=== PATIENT | female | born 1935 | race Caucasian/White ===

== ENCOUNTER 2018-06-29 12:14 | Emergency (ER) | payer MEDICARE ==
[~2018-06-29] VITALS: Ht 165.1 cm; Wt 70.2 kg
[2018-06-29 13:39] LABS: BASOPHILS # (AUTO) 0.03 x10^3/uL (0-0.1); BASOPHILS % (AUTO) 0 % (0-1); EOSINOPHILS # (AUTO) 0.34 x10^3/uL (0-0.4); EOSINOPHILS % (AUTO) 5 % (1-7); LYMPHOCYTES # (AUTO) 0.92 x10^3/uL (1-3.4); LYMPHOCYTES % (AUTO) 12 % (22-44); MD NO; MEAN CORPUSCULAR HEMOGLOBIN 29.2 pg (27.0-34.8); MEAN CORPUSCULAR HGB CONC 33.5 g/dL (32.4-35.8); MEAN CORPUSCULAR VOLUME 87.1 fL (80-100); MEAN PLATELET VOLUME 8.6 fL (7.4-10.4); MONOCYTES # (AUTO) 0.93 x10^3/uL (0.2-0.8); MONOCYTES % (AUTO) 12 % (2-9); NEUTROPHILS # (AUTO) 5.32 x10^3/uL (1.8-6.8); NEUTROPHILS % (AUTO) 71 % (42-75); PLATELET COUNT 161 x10^3/uL (130-400); RED BLOOD COUNT 3.91 x10^6/uL (3.82-5.3)
[2018-06-29 14:12] VITALS: BP 135/78
== END 2018-06-29 14:17 | disposition home or self-care (01) ==
LOC: ED 14:11
DX: S40.022A Contusion of left upper arm, initial encounter (principal); I10 Essential (primary) hypertension; Z95.0 Presence of cardiac pacemaker; X58.XXXA Exposure to other specified factors, initial encounter; Y93.89 Activity, other specified; Y92.89 Other specified places as the place of occurrence of the external cause; Y99.8 Other external cause status
CPT/HCPCS: 36415; 85025; 93005; 99284

== ENCOUNTER 2021-03-20 12:13 | Emergency (ER) | payer MEDICARE ==
[~2021-03-20] VITALS: Ht 165.1 cm; Wt 74.2 kg
[2021-03-20 12:42] LABS: BASOPHILS % (AUTO) 1 % (0-1); EOSINOPHILS % (AUTO) 4 % (1-7); LYMPHOCYTES % (AUTO) 7 % (22-44); MEAN CORPUSCULAR HEMOGLOBIN 26.6 pg (27.0-34.8); MEAN PLATELET VOLUME 7.9 fL (7.4-10.4); MONOCYTES % (AUTO) 12 % (2-9); NEUTROPHILS % (AUTO) 76 % (42-75); PLATELET COUNT 264 x10^3/uL (130-400); RED BLOOD COUNT 4.84 x10^6/uL (3.82-5.3); RED CELL DISTRIBUTION WIDTH 16.2 % (9.6-15.2)
[2021-03-20 12:57] LABS: ALANINE AMINOTRANSFERASE 12 U/L (12-78); ALBUMIN 3.6 g/dL (3.4-5.0); ANION GAP 9 mmol/L (5-15); CALCIUM 9.4 mg/dL (8.5-10.1); CHLORIDE 105 mmol/L (98-107); CREATININE 1.54 mg/dL (0.55-1.02)
[2021-03-20 13:00] LABS: INTERNATIONAL NORMALIZED RATIO 1.03 (0.93-1.1)
[2021-03-20 13:01] LABS: ALKALINE PHOSPHATASE 69 U/L (45-117); BILIRUBIN,TOTAL 0.5 mg/dL (0.2-1.0); TOTAL PROTEIN 7.9 g/dL (6.4-8.2); TROPONIN I < 0.015 ng/mL (0.000-0.045)
[2021-03-20] MEDS ORDERED: LEVO75TA5 PO (14:13)
[2021-03-20] MEDS ORDERED: VIT1CAPS11 PO (14:22)
[2021-03-20] MEDS ORDERED: ASPI-963 PO (14:22)
[2021-03-20] MEDS ORDERED: CARV6.252 PO (14:22)
[2021-03-20] MEDS ORDERED: SENN-190 PO (14:22)
[2021-03-20] MEDS ORDERED: BUME1TAB21 PO (14:22)
[2021-03-20] MEDS ORDERED: TOLT1TAB13 PO (14:22)
[2021-03-20] MEDS ORDERED: ISOS20TA58 PO (14:22)
[2021-03-20] MEDS ORDERED: APIX2.5T PO (14:22)
[2021-03-20] MEDS ORDERED: CHOL500045 PO (14:22)
[2021-03-20] MEDS ORDERED: OMEP-110 PO (14:22)
[2021-03-20] MEDS ORDERED: LOSA25TA25 PO (14:22)
[2021-03-20 14:30] LABS: MICROSCOPIC AUTO
[2021-03-20] MEDS ORDERED: ACET-1600 PO (14:59)
[2021-03-20] MEDS ORDERED: DIPH25CA61 PO (14:59)
[2021-03-20] MEDS ORDERED: LORA-445 PO (14:59)
[2021-03-20] MEDS ORDERED: PROP10TA16 PO (14:59)
[2021-03-20] MEDS ORDERED: MECLIZINE CHEWABLE 25 MG TAB ONE (15:16)
[2021-03-20] MEDS ORDERED: MECLIZINE CHEWABLE 25 MG TAB PO ONE (15:30)
--- NOTE | 2021-03-20 16:25 | NUR ---
PT ABLE TO AMBULATE STEADILY IN HALLWAY FOR OVER 100ft. PT DENIED ANY DIZZINESS WHILE UP AMBULATING. PT BACK IN BED AWAITING CT SCAN
--- NOTE | 2021-03-20 17:21 | NUR ---
PT UP FOR RECHECK, CT RESULTS BACK.
[2021-03-20 18:16] VITALS: BP 151/69
== END 2021-03-20 18:17 | disposition home or self-care (01) ==
LOC: ED 13:57
DX: R42 Dizziness and giddiness (principal); R53.1 Weakness; I10 Essential (primary) hypertension; R51.9 Headache, unspecified
CPT/HCPCS: 36415; 70450; 71045; 80053; 81001; 83735; 83880; 84443; 84484; 85025; 85610; 85730; 87086; 93005; 99285

== ENCOUNTER 2021-03-24 07:00 | Inpatient (IN) | payer MEDICARE ==
[~2021-03-24] VITALS: Ht 165.1 cm; Wt 77.9 kg
[~2021-03-24 07:00] MED LIST: ACET-1600 PO; APIX2.5T PO; ASPI-963 PO; BUME1TAB21 PO; CARV6.252 PO; CHOL500045 PO; DIPH25CA61 PO; ISOS20TA58 PO; LEVO75TA5 PO; LORA-445 PO; LOSA25TA25 PO; OMEP-110 PO; PROP10TA16 PO; SENN-190 PO; TOLT1TAB13 PO; VIT1CAPS11 PO
[2021-03-24] MEDS ORDERED: INSU100I13 SC (07:44)
[2021-03-24 08:50] LABS: BASOPHILS % (AUTO) 1 % (0-1); EOSINOPHILS % (AUTO) 3 % (1-7); LYMPHOCYTES % (AUTO) 6 % (22-44); MEAN CORPUSCULAR HEMOGLOBIN 26.4 pg (27.0-34.8); MEAN CORPUSCULAR HGB CONC 32.5 g/dL (32.4-35.8); MEAN PLATELET VOLUME 7.9 fL (7.4-10.4); MONOCYTES % (AUTO) 14 % (2-9); NEUTROPHILS % (AUTO) 76 % (42-75); PLATELET COUNT 204 x10^3/uL (130-400); RED BLOOD COUNT 4.52 x10^6/uL (3.82-5.3); RED CELL DISTRIBUTION WIDTH 16.7 % (9.6-15.2)
[2021-03-24] MEDS ORDERED: DIAZEPAM 5 MG/ML, 2ML IV ONE (09:00)
[2021-03-24 09:05] LABS: ANION GAP 9 mmol/L (5-15); CHLORIDE 106 mmol/L (98-107)
[2021-03-24 09:09] LABS: CREATININE 1.45 mg/dL (0.55-1.02); TROPONIN I < 0.015 ng/mL (0.000-0.045)
[2021-03-24] MEDS ORDERED: DIAZEPAM 5 MG/ML, 2ML ONE (09:12)
--- NOTE | 2021-03-24 11:19 | NUR ---
MRI called again to verify about [employer] rep. state they are on their way to retrieve pt., resting quietly
[2021-03-24] MEDS ORDERED: ONDANSETRON 2MG/ML, 2ML IVPush PRN (14:00)
[2021-03-24] MEDS ORDERED: SODIUM CHLORIDE 0.9% 1,000 ML IV SCH (14:00)
[2021-03-24] MEDS ORDERED: ONDANSETRON ODT 4 MG PO PRN (14:00)
[2021-03-24] MEDS ORDERED: OMNIPAQUE 350 MG/ML, 75ML BOTTLE ONE (14:50)
--- NOTE | 2021-03-24 15:21 | NUR ---
BEDSIDE REPORT AND TRANSFER OF CARE FROM IBETH PLATA AT THIS TIME. PT EATING MEAL TRAY AT THIS TIME WITHOUT ANY DIFFICULTY. DENIES ANY PAIN AND NEED TO USE RESTROOM. VSS. CALL LIGHT IN REACH. FALL PRECAUTIONS IN PLACE. A&OX4. AWAITING ROOM ASSIGNMENT ON FLOOR. ALL NEEDS MET AND ADDRESSED.
--- NOTE | 2021-03-24 16:35 | NUR ---
PT ASSISTED TO BSC. ASSISTED BACK TO BED. RESTING COMFORTABLY. VSS. DENIES PAIN, CP, DIZZINESS. WATCHING TV. AWAITING ROOM ON FLOOR. CALL LIGHT IN REACH. FALL PRECAUTIONS IN PLACE
--- NOTE | 2021-03-24 17:02 | NUR ---
MEDICATIONS REQUESTED FROM PHARMACY, YELLOW SLIP SENT
--- NOTE | 2021-03-24 17:35 | NUR ---
CONTINUE AWAITING MEDICATIONS FROM PHARMACY. RESTING COMFORTABLY. DENIES ANY PAIN AND NEED TO USE RESTROOM. DAUGHTER AT BEDSIDE. VSS. CALL LIGHT IN REACH. FALL PRECAUTIONS IN PLACE
[2021-03-24] MEDS: INSULIN LISPRO 100 UNITS/ML, PEN SQ-INSULIN SCH ×2 (18:09→21:48)
[2021-03-24] MEDS: LACTOBACILLUS CHEW TABLET PO SCH ×2 (18:15→21:57)
[2021-03-24] MEDS: PROPRANOLOL 10 MG TABLET PO SCH ×2 (18:15→21:00)
--- NOTE | 2021-03-24 18:15 | NUR ---
PT RESTING COMFORTABLY. DENIES NEED TO USE RESTROOM. MEDICATED NOTED IN EMAR. FSBS CHECKED,124, NO INSULIN INDICATED PER SLIDING SCALE. VSS. CALL LIGHT IN REACH. WILL CONTINUE TO MONITOR. AWAITING ROOM ON FLOOR.
--- NOTE | 2021-03-24 19:15 | NUR ---
BEDSIDE REPORT AND TRANSFER OF CARE TO IRAJ RN AT THIS TIME.
--- NOTE | 2021-03-24 20:40 | NUR ---
REPORT TO CRYSTAL PLATA
[2021-03-24] MEDS: TOLTERODINE 2MG TABLET PO SCH (21:00)
[2021-03-24] MEDS: CARVEDILOL 6.25 MG TABLET PO SCH (21:00)
[2021-03-24] MEDS ORDERED: DIPHENHYDRAMINE 12.5MG/5ML, 10ML UDC PO SCH (21:00)
[2021-03-24] MEDS ORDERED: LORazepam 0.5MG TABLET PO PRN (21:00)
[2021-03-24 21:18] VITALS: BP 148/77
[2021-03-24] MEDS: INSULIN GLARGINE 100 UNITS/ML, PEN SQ-INSULIN SCH (21:48)
[2021-03-24] MEDS: ISOSORBIDE DINITRATE 20 MG TABLET PO SCH (21:57)
[2021-03-24] MEDS: APIXABAN 5 MG TABLET PO SCH (21:57)
[2021-03-24] MEDS: ATORVASTATIN 80 MG TABLET PO SCH (21:57)
[2021-03-25 00:51] VITALS: BP 148/68
[2021-03-25] MEDS ORDERED: PROPRANOLOL 10 MG TABLET PO PRN (01:00)
[2021-03-25] MEDS ORDERED: DIPHENHYDRAMINE 12.5MG/5ML, 10ML UDC PO PRN (01:00)
[2021-03-25] MEDS: LEVOTHYROXINE 75 MCG TABLET PO SCH (05:49)
[2021-03-25 06:41] LABS: ANION GAP 7 mmol/L (5-15); BASOPHILS % (AUTO) 1 % (0-1); CHLORIDE 105 mmol/L (98-107); EOSINOPHILS % (AUTO) 5 % (1-7); LYMPHOCYTES % (AUTO) 7 % (22-44); MEAN CORPUSCULAR HEMOGLOBIN 26.2 pg (27.0-34.8); MEAN CORPUSCULAR HGB CONC 32.2 g/dL (32.4-35.8); MONOCYTES % (AUTO) 13 % (2-9); NEUTROPHILS % (AUTO) 75 % (42-75); PLATELET COUNT 209 x10^3/uL (130-400); RED BLOOD COUNT 4.61 x10^6/uL (3.82-5.3); RED CELL DISTRIBUTION WIDTH 16.6 % (9.6-15.2)
[2021-03-25 06:42] LABS: CREATININE 1.34 mg/dL (0.55-1.02)
[2021-03-25] MEDS: INSULIN LISPRO 100 UNITS/ML, PEN SQ-INSULIN SCH ×4 (07:30→20:14)
[2021-03-25] MEDS ORDERED: LOSARTAN 25MG TABLET PO SCH (09:00)
[2021-03-25] MEDS ORDERED: BUMETANIDE 1 MG TABLET PO SCH (09:00)
[2021-03-25 09:13] VITALS: BP 172/70
[2021-03-25] MEDS: TOLTERODINE 2MG TABLET PO SCH ×2 (09:19→20:10)
[2021-03-25] MEDS: MULTIVITAMINS/MINERALS TABLET PO SCH (09:19)
[2021-03-25] MEDS: OMEPRAZOLE 20 MG CAPSULE.DR PO SCH (09:20)
[2021-03-25] MEDS: ISOSORBIDE DINITRATE 20 MG TABLET PO SCH ×2 (09:20→20:09)
[2021-03-25] MEDS: CARVEDILOL 6.25 MG TABLET PO SCH ×2 (09:21→20:09)
[2021-03-25] MEDS: ASPIRIN 81 MG TABLET EC PO SCH (09:22)
[2021-03-25] MEDS: SENNOSIDES 8.6 MG TABLET PO SCH (09:22)
[2021-03-25] MEDS: APIXABAN 5 MG TABLET PO SCH ×2 (09:23→20:09)
[2021-03-25 12:50] VITALS: BP 151/65
[2021-03-25] MEDS ORDERED: POTASSIUM CHLORIDE 20 MEQ TAB.ER.PRT PO ONE (15:00)
[2021-03-25 16:37] VITALS: BP 150/72
[2021-03-25 19:49] VITALS: BP 148/70
[2021-03-25] MEDS: ATORVASTATIN 80 MG TABLET PO SCH (20:09)
[2021-03-25] MEDS: INSULIN GLARGINE 100 UNITS/ML, PEN SQ-INSULIN SCH (20:13)
[2021-03-25 23:26] VITALS: BP 159/83
[2021-03-26 04:11] VITALS: BP 157/72
[2021-03-26] MEDS: LEVOTHYROXINE 75 MCG TABLET PO SCH (05:11)
[2021-03-26] MEDS ORDERED: GLUCAGON 1 MG IM PRN (06:30)
[2021-03-26] MEDS ORDERED: DEXTROSE 50%, 50ML SYRINGE IVPush PRN (06:30)
[2021-03-26] MEDS ORDERED: DEXTROSE 4 GM TAB.CHEW PO PRN (06:30)
[2021-03-26] MEDS: INSULIN LISPRO 100 UNITS/ML, PEN SQ-INSULIN SCH ×4 (07:00→19:43)
[2021-03-26 07:26] VITALS: BP 148/61
[2021-03-26] MEDS: ACETAMINOPHEN 500 MG TABLET PO PRN (07:52)
[2021-03-26] MEDS: TOLTERODINE 2MG TABLET PO SCH ×2 (08:13→19:59)
[2021-03-26] MEDS: SENNOSIDES 8.6 MG TABLET PO SCH (08:14)
[2021-03-26] MEDS: APIXABAN 5 MG TABLET PO SCH ×2 (08:16→19:58)
[2021-03-26] MEDS: ISOSORBIDE DINITRATE 20 MG TABLET PO SCH ×2 (08:16→19:58)
[2021-03-26] MEDS: OMEPRAZOLE 20 MG CAPSULE.DR PO SCH (08:16)
[2021-03-26] MEDS: MULTIVITAMINS/MINERALS TABLET PO SCH (08:16)
[2021-03-26] MEDS: CARVEDILOL 6.25 MG TABLET PO SCH ×2 (08:16→19:57)
[2021-03-26] MEDS: LOSARTAN 25MG TABLET PO SCH (08:16)
[2021-03-26] MEDS: ASPIRIN 81 MG TABLET EC PO SCH (08:16)
[2021-03-26] MEDS: SODIUM CHLORIDE FLUSH 10ML SYR IVF SCH ×2 (09:00→19:57)
[2021-03-26 12:22] VITALS: BP 133/83
[2021-03-26 14:55] VITALS: BP 147/78
[2021-03-26 19:50] VITALS: BP 154/63
[2021-03-26] MEDS: ATORVASTATIN 80 MG TABLET PO SCH (19:57)
[2021-03-26] MEDS: INSULIN GLARGINE 100 UNITS/ML, PEN SQ-INSULIN SCH (19:58)
[2021-03-26 23:50] VITALS: BP 167/67
[2021-03-27 03:52] VITALS: BP 160/51
[2021-03-27] MEDS: LEVOTHYROXINE 75 MCG TABLET PO SCH (05:29)
[2021-03-27] MEDS: INSULIN LISPRO 100 UNITS/ML, PEN SQ-INSULIN SCH ×4 (07:00→20:19)
[2021-03-27 08:00] VITALS: BP 154/78
[2021-03-27] MEDS: SENNOSIDES 8.6 MG TABLET PO SCH (10:31)
[2021-03-27] MEDS: LOSARTAN 25MG TABLET PO SCH (10:32)
[2021-03-27] MEDS: ISOSORBIDE DINITRATE 20 MG TABLET PO SCH ×2 (10:33→20:29)
[2021-03-27] MEDS: MULTIVITAMINS/MINERALS TABLET PO SCH (10:33)
[2021-03-27] MEDS: ASPIRIN 81 MG TABLET EC PO SCH (10:33)
[2021-03-27] MEDS: OMEPRAZOLE 20 MG CAPSULE.DR PO SCH (10:33)
[2021-03-27] MEDS: APIXABAN 5 MG TABLET PO SCH ×2 (10:33→20:29)
[2021-03-27] MEDS: SODIUM CHLORIDE FLUSH 10ML SYR IVF SCH ×2 (10:34→20:30)
[2021-03-27] MEDS: TOLTERODINE 2MG TABLET PO SCH ×2 (10:34→20:33)
[2021-03-27] MEDS: CARVEDILOL 6.25 MG TABLET PO SCH ×2 (10:34→20:31)
[2021-03-27 11:08] LABS: ANION GAP 7 mmol/L (5-15); CALCIUM 8.7 mg/dL (8.5-10.1); CHLORIDE 106 mmol/L (98-107); CREATININE 1.28 mg/dL (0.55-1.02)
[2021-03-27 14:00] VITALS: BP 150/68
[2021-03-27] MEDS: ACETAMINOPHEN 500 MG TABLET PO PRN (14:55)
[2021-03-27 19:11] VITALS: BP 132/67
[2021-03-27] MEDS: ATORVASTATIN 80 MG TABLET PO SCH (20:29)
[2021-03-27] MEDS: INSULIN GLARGINE 100 UNITS/ML, PEN SQ-INSULIN SCH (20:30)
[2021-03-28 00:14] VITALS: BP 146/71
[2021-03-28 01:12] VITALS: BP 138/69
[2021-03-28 04:24] VITALS: BP 168/75
[2021-03-28] MEDS: LEVOTHYROXINE 75 MCG TABLET PO SCH (06:05)
[2021-03-28] MEDS: INSULIN LISPRO 100 UNITS/ML, PEN SQ-INSULIN SCH ×2 (07:00→11:21)
[2021-03-28 07:10] VITALS: BP 151/73
[2021-03-28 07:50] LABS: BASOPHILS % (AUTO) 1 % (0-1); EOSINOPHILS % (AUTO) 5 % (1-7); LYMPHOCYTES % (AUTO) 5 % (22-44); MEAN CORPUSCULAR HEMOGLOBIN 26.4 pg (27.0-34.8); MEAN CORPUSCULAR HGB CONC 32.6 g/dL (32.4-35.8); MEAN PLATELET VOLUME 8.6 fL (7.4-10.4); MONOCYTES % (AUTO) 13 % (2-9); NEUTROPHILS % (AUTO) 77 % (42-75); PLATELET COUNT 190 x10^3/uL (130-400); RED BLOOD COUNT 4.34 x10^6/uL (3.82-5.3); RED CELL DISTRIBUTION WIDTH 16.7 % (9.6-15.2)
[2021-03-28 07:51] LABS: CHLORIDE 106 mmol/L (98-107)
[2021-03-28 07:59] LABS: ANION GAP 7 mmol/L (5-15); CALCIUM 8.7 mg/dL (8.5-10.1)
[2021-03-28] MEDS: MULTIVITAMINS/MINERALS TABLET PO SCH (11:15)
[2021-03-28] MEDS: ASPIRIN 81 MG TABLET EC PO SCH (11:15)
[2021-03-28] MEDS: TOLTERODINE 2MG TABLET PO SCH (11:15)
[2021-03-28] MEDS: ISOSORBIDE DINITRATE 20 MG TABLET PO SCH (11:15)
[2021-03-28] MEDS: APIXABAN 5 MG TABLET PO SCH (11:15)
[2021-03-28] MEDS: OMEPRAZOLE 20 MG CAPSULE.DR PO SCH (11:15)
[2021-03-28] MEDS: LOSARTAN 25MG TABLET PO SCH (11:15)
[2021-03-28] MEDS: SODIUM CHLORIDE FLUSH 10ML SYR IVF SCH (11:16)
[2021-03-28] MEDS: SENNOSIDES 8.6 MG TABLET PO SCH (11:17)
[2021-03-28 14:00] VITALS: BP 162/74
[2021-03-28] MEDS ORDERED: LOSA25TA25 PO (14:59)
[2021-03-28] MEDS ORDERED: CARV6.2512 PO (14:59)
[2021-03-28] MEDS ORDERED: TRAM50TA2 PO (14:59)
[2021-03-28] MEDS ORDERED: HYDR-3341 PO (14:59)
[2021-03-28] MEDS ORDERED: APIX5TAB PO (14:59)
[2021-03-28] MEDS ORDERED: ATOR-2 PO (14:59)
[2021-03-28] MEDS ORDERED: INSU100I13 SQ-INSULIN (14:59)
[2021-03-28] MEDS ORDERED: CARVEDILOL 6.25 MG TABLET PO SCH (21:00)
== END 2021-03-28 16:28 | DRG 65 ==
LOC: ED 08:28 → SUATTDRO 17:28 → 4EST 21:12
PROVIDERS: ADMIT Family Medicine; ATTEND Hospitalist
PROC: 4B02XSZ Measurement of Cardiac Pacemaker, External Approach (ICD-10-PCS; principal; 2021-03-24)
DX: I63.40 Cerebral infarction due to embolism of unspecified cerebral artery (principal); I48.92 Unspecified atrial flutter; N17.9 Acute kidney failure, unspecified; D68.69 Other thrombophilia; I50.42 Chronic combined systolic (congestive) and diastolic (congestive) heart failure; I48.20 Chronic atrial fibrillation, unspecified; I42.9 Cardiomyopathy, unspecified; I13.0 Hypertensive heart and chronic kidney disease with heart failure and stage 1 through stage 4 chronic kidney disease, or unspecified chronic kidney disease; K57.92 Diverticulitis of intestine, part unspecified, without perforation or abscess without bleeding; E03.9 Hypothyroidism, unspecified; E11.22 Type 2 diabetes mellitus with diabetic chronic kidney disease; E11.649 Type 2 diabetes mellitus with hypoglycemia without coma; K21.9 Gastro-esophageal reflux disease without esophagitis; I49.5 Sick sinus syndrome; I25.10 Atherosclerotic heart disease of native coronary artery without angina pectoris; H81.4 Vertigo of central origin; I65.02 Occlusion and stenosis of left vertebral artery; N18.9 Chronic kidney disease, unspecified; E78.5 Hyperlipidemia, unspecified; Z95.1 Presence of aortocoronary bypass graft; Z90.710 Acquired absence of both cervix and uterus; Z86.73 Personal history of transient ischemic attack (TIA), and cerebral infarction without residual deficits; Z79.82 Long term (current) use of aspirin; Z79.01 Long term (current) use of anticoagulants; Z88.0 Allergy status to penicillin; Z95.0 Presence of cardiac pacemaker; Z90.49 Acquired absence of other specified parts of digestive tract
CPT/HCPCS: 36415; 70496; 70498; 70551; 80048; 82947; 82962; 83036; 84484; 85025; 93005; 93306; 93356; 96360; 99285; G0378; J3360; Q9967; J1815; J7030

== ENCOUNTER 2021-04-07 12:12 | Emergency (ER) | payer MEDICARE ==
[~2021-04-07] VITALS: Ht 165.1 cm; Wt 75.0 kg
[2021-04-07 15:04] VITALS: BP 166/77
== END 2021-04-07 16:46 | disposition home or self-care (01) ==
LOC: ED 15:35
DX: R05 Cough (principal); R06.02 Shortness of breath; Z20.822 Contact with and (suspected) exposure to COVID-19; I11.0 Hypertensive heart disease with heart failure; I50.9 Heart failure, unspecified; Z86.73 Personal history of transient ischemic attack (TIA), and cerebral infarction without residual deficits; Z95.0 Presence of cardiac pacemaker
CPT/HCPCS: 36415; 71045; 80053; 83880; 84484; 85025; 93005; 99285; U0003; U0005